=== PATIENT | female | born 1975 | race Hispanic/Latino ===

== ENCOUNTER 2018-04-18 12:03 | Emergency (ER) | payer OTHER ==
[~2018-04-18] VITALS: Ht 167.6 cm; Wt 83.9 kg
--- OUTSIDE RECORDS SUMMARY | 2018-04-18 12:05 | XMS REPORT ---
Author Author [facility] Address Unknown Phone Unavailable Care Team Providers Care Condominium Manager Name Role Phone Unavailable Unavailable Payers Payer Name Policy Type Policy Number Effective Date Expiration Date Problems This patient has no known problems. Allergies, Adverse Reactions, Alerts Allergy Name Allergy Type Status Severity Reaction(s) Onset Date Inactive Date Treating Clinician Comments No Known Allergies DA Active U 2017-06-18 00:00:00 Medications This patient has no known medications.
[2018-04-18] MEDS ORDERED: HYDROCODONE/APAP 10MG-325MG TAB PO ONE (12:15)
[2018-04-18] MEDS ORDERED: LIDOCAINE 2%/ EPINEPHRINE 20ML MDV INJ ONE (12:15)
[2018-04-18] MEDS ORDERED: HYDROMORPHONE 2MG/ML 2 MG/ML ML IV ONE (15:30)
[2018-04-18] MEDS ORDERED: HYDROMORPHONE 2MG/ML 2 MG/ML ML IM ONE (18:45)
== END 2018-04-18 12:45 | disposition home or self-care (01) ==
LOC: ER 12:03
DX: L02.214 Cutaneous abscess of groin (principal); E11.9 Type 2 diabetes mellitus without complications
CPT/HCPCS: 99283; J2001

== ENCOUNTER → 2019-09-17 | Outpatient (CLI) | payer OTHER ==
--- NOTE | 2019-09-17 18:19 | Diagnostic Imaging Report ---
Solid-phase gastric emptying study Reason for examination: Epigastric pain; anorexia The protocol used for this study is based on the Consensus Recommendations for Gastric Scintigraphy by the [place] [employer] and the Society of Nuclear [employer]. Clinical information: The patient is diabetic. The patient has not had previous gastrointestinal surgery. The patient is not on any medications expected to affect gastric motility. The patient has been fasting for at least 6 hours prior to this exam. Radiopharmaceutical: Tc-99m sulfur colloid 1 mCi Report: The radiopharmaceutical was added to 1/2 cup egg whites that were then prepared and served with 2 pieces of white bread toasted, 30 grams of jam and 4 ounces of water. The patient took more than 75% of the radiolabeled meal. Images were obtained of the abdomen in the anterior and posterior projections at 10 minutes post the meal and at 1 and 2 hours. Uptake was determined from the geometric mean of the anterior and posterior counts and the counts were corrected for decay of the radiolabel. The percent gastric retention of the labeled meal at: 1 hour was 43% (normal 30-90%) 2 hours was 26% (normal <60%; if less than 35%, study is considered normal) Impression: The pattern of gastric emptying is normal. Scan findings do not support the clinical diagnosis of gastroparesis. Signed by: Dr. Stefany Bee M.D. on 09/17/2019 6:16 PM
== END ==
LOC: NM 09:09
PROVIDERS: ATTEND Internal Medicine Gastroenterology
DX: R10.13 Epigastric pain (principal); R63.0 Anorexia; E11.9 Type 2 diabetes mellitus without complications; I10 Essential (primary) hypertension; Z71.3 Dietary counseling and surveillance; E66.3 Overweight
CPT/HCPCS: 78264; 81025; A9541

== ENCOUNTER 2023-10-13 11:42 | Emergency (ER) | payer OTHER ==
[~2023-10-13] VITALS: Ht 167.6 cm; Wt 83.9 kg
[2023-10-13 11:42] VITALS: PULSE 90; RESP 18; TEMP 98.2
[2023-10-13 12:46] VITALS: BP 134/59; PULSE 85; RESP 18; O2SAT 100
== END 2023-10-13 13:20 | disposition home or self-care (01) ==
LOC: ER 12:00
DX: R06.02 Shortness of breath (principal); J84.10 Pulmonary fibrosis, unspecified; Z99.81 Dependence on supplemental oxygen; E11.9 Type 2 diabetes mellitus without complications
CPT/HCPCS: 99283